=== PATIENT | male | born 1960 | race Caucasian/White ===

== ENCOUNTER 2018-08-07 00:17 | Emergency (ER) | payer SELFPAY ==
[2018-08-07 00:17] VITALS: BMI 29.0
[2018-08-07 00:55] LABS: BASOPHILS 0.3 % (0-2); HEMATOCRIT 39.6 % (42.0-54.0); HEMOGLOBIN 13.5 g/dL (13.5-17.5); IMMATURE GRANULOCYTES 0.1 % (0-5); LYMPHOCYTES 23.9 % (15-50); MCH 31.6 pg (26.0-34.0); MCHC 34.1 g/dL (31.0-37.0); MCV 92.7 fL (80.0-100.0); MEAN PLATELET VOLUME 9.6 fL (7.4-10.4); MONOCYTES 9.7 % (2-11); PLATELET COUNT 177 10x3/uL (130-400); RBC 4.27 10x6/uL (4.20-6.10); RDW 12.8 % (11.5-14.5); WBC 7.8 10x3/uL (4.8-10.8)
[2018-08-07 01:09] LABS: APPEARANCE HAZY (CLEAR); COLOR YELLOW (YELLOW); SPECIFIC GRAVITY 1.005 (1.005-1.020)
[2018-08-07 01:10] LABS: BILIRUBIN NEGATIVE (NEGATIVE); GLUCOSE NEGATIVE (NEGATIVE); KETONE NEGATIVE (NEGATIVE); NITRITE NEGATIVE (NEGATIVE); PROTEIN NEGATIVE (NEGATIVE); UROBILINOGEN NORMAL (NORMAL)
[2018-08-07 01:12] LABS: ALBUMIN 3.8 g/dL (3.4-5.0); ALKALINE PHOSPHATASE 62 U/L (46-116); ALT (SGPT) 22 U/L (10-68); CALC OSMOLALITY 280 mosm/kg (275-300); CALCIUM 9.4 mg/dL (8.5-10.1); CARBON DIOXIDE 31.1 mmol/L (21.0-32.0); CHLORIDE - SERUM 101 mmol/L (98-107); CREATININE - SERUM 0.8 mg/dL (0.6-1.3); GLUCOSE 114 mg/dL (74-106); POTASSIUM - SERUM 3.5 mmol/L (3.5-5.1); PROTEIN - SERUM 7.7 g/dL (6.4-8.2); SODIUM 140 mmol/L (136-145); UREA NITROGEN 15 mg/dL (7-18); eGFR NON AFRICAN AMERICAN > 90 mL/min (90-120)
[2018-08-07 01:20] LABS: LIPASE 1284 U/L (73-393); PRO BNP 99 pg/mL (0-125)
[2018-08-07 01:23] LABS: TROPONIN-I < 0.017 ng/mL (0.000-0.060)
[2018-08-07] MEDS ORDERED: LOTREL 5/10 MG1 CAP PO (01:32)
[2018-08-07 02:12] LABS: LDL-HDL RATIO 2.5 ratio (1.5-3.5)
[2018-08-07] MEDS ORDERED: HYDROCODON-ACE1 EAC2 PO (04:20)
[2018-08-07 05:11] VITALS: BP 146/83
== END 2018-08-07 05:11 | disposition home or self-care (01) ==
LOC: D.ER 00:17
PROVIDERS: Emergency Medicine
DX: I10 Essential (primary) hypertension (principal); K85.20 Alcohol induced acute pancreatitis without necrosis or infection